=== PATIENT | female | born 1985 | race Caucasian/White ===

== ENCOUNTER 2023-06-30 12:04 | Emergency (ER) | payer OTHER, SELFPAY ==
[2023-06-30 12:14] VITALS: BP 128/85; PULSE 86; RESP 16; TEMP 36.3; O2SAT 100
[2023-06-30 12:15] VITALS: BP 128/85; PULSE 86; RESP 16; TEMP 36.3; O2SAT 100
--- NOTE | 2023-06-30 12:29 | ED.FEMALEGU ---
HPI - Female Genitourinary General Chief complaint: Urogenital-Female Stated complaint: uti Time Seen by Provider: 06/30/23 12:23 Source: patient and RN notes reviewed Mode of arrival: ambulatory Limitations: no limitations History of Present Illness HPI Narrative: Patient presents today complaining of vulvar itching and external burning with urination that started 3 days ago. Denies abdominal pain, back pain, fever, nausea vomiting, sweats or chills. Patient started her menstrual cycle 4 days ago. She has been taking Azo Yeast without relief of symptoms. Related Data Home Medications Medication Instructions Recorded Confirmed buspirone 10 mg tablet 10 mg PO BID 06/30/23 06/30/23 dupilumab 300 mg/2 mL subcutaneous See Rx Instructions .Route .COMPLEX 06/30/23 06/30/23 pen injector (Dupixent) Allergies Allergy/AdvReac Type Severity Reaction Status Date / Time No Known Allergies Allergy Verified 06/30/23 12:14 Review of Systems Review of Systems: CONSTITUTIONAL: Denies body aches, fever, chills, or sweats. EYES: Denies visual changes, redness, or discharge. ENT: Denies rhinorrhea, congestion, sore throat, or otalgia. CARDIOVASCULAR: Denies chest pain, palpitations, or edema. RESPIRATORY: Denies cough or dyspnea. GASTROINTESTINAL: Denies abdominal pain, nausea, vomiting, or diarrhea. GENITOURINARY: + vulvar itching and burning SKIN: Denies rash, itching, or wounds. MUSCULOSKELETAL: Denies back pain, joint pain, or myalgia. NEUROLOGIC: Denies headache, numbness, tingling, or weakness. PSYCH: Denies depression or anxiety. PMFSH Comments At time of signature, I have reviewed and agree with nursing past medical, surgical, social and family history unless otherwise noted. Please see nursing chart for further information. There is no relevant family history pertinent to the presenting complaint Exam Narrative: GENERAL: Well-appearing, well-nourished, and in no acute distress. HEAD: Normocephalic, atraumatic. EYES: EOMI. No redness or drainage. Conjunctivae normal. ENT: Mucous membranes pink and moist. NECK: Normal AROM. CHEST: No respiratory distress. : exam deferred EXTREMITIES: Normal range of motion. No edema. SKIN: Warm, dry, no rash. Capillary refill normal. Normal skin turgor. NEURO: No focal deficits. Alert and oriented x3. Gait steady. PSYCH: Normal affect. No signs of depression or anxiety. Course Course Level of Care: Express Care Visit Vital Signs Vital signs: Vital Signs Temperature 97.4 F L 06/30/23 12:14 Pulse Rate 86 06/30/23 12:14 Respiratory Rate 16 06/30/23 12:14 Blood Pressure 128/85 06/30/23 12:14 Pulse Oximetry 100 06/30/23 12:14 Oxygen Delivery Room Air 06/30/23 12:14 Temperature 97.4 F L 06/30/23 12:15 Pulse Rate 86 06/30/23 12:15 Respiratory Rate 16 06/30/23 12:15 Blood Pressure 128/85 06/30/23 12:15 Pulse Oximetry 100 06/30/23 12:15 Oxygen Delivery Room Air 06/30/23 12:15 Reviewed MDM - Female Genitourinary MDM Narrative Medical decision making narrative: Urinalysis is not consistent with UTI. Patient's symptoms consistent with her with vulvovaginitis. Will treat with fluconazole. Recommend follow-up in 1 week if symptoms persist. Differential Diagnosis Differential diagnosis: Likely urinary tract infection, vaginitis, cystitis and other Lab Data Attestation: I reviewed the patient's lab results. Labs: Urine Glucose Negative Reference Range: Negative Urine Bilirubin Negative Reference Range: Negative Urine Ketone Negative Reference Range: Negative Urine Specific [place] 1.010 Reference Range:1.001-1.035 Urine Blood
== END 2023-06-30 12:37 | disposition home or self-care (01) ==
PROVIDERS: Emergency Provider Nurse Practitioner
DX: N76.0 Acute vaginitis (principal); F41.9 Anxiety disorder, unspecified; F32.A Depression, unspecified; Z87.440 Personal history of urinary (tract) infections; Z86.16 Personal history of COVID-19
CPT/HCPCS: 81003; 87077; 87086; 87088; 99203; G0463

== ENCOUNTER 2023-10-04 17:34 | Emergency (ER) | payer OTHER, SELFPAY ==
[2023-10-04 17:35] VITALS: BP 141/98; PULSE 117; RESP 18; TEMP 36.1; O2SAT 97
--- NOTE | 2023-10-04 17:43 | ED.URI ---
HPI - URI/Sore Throat General Chief Complaint: Upper Respiratory Infection Stated Complaint: cold symptoms Time Seen by Provider: 10/04/23 17:41 History of Present Illness HPI Narrative: Pt presents with sore throat chills and body aches and fever for several days. Pt went to an urgent care and had negative strep, covid, flu and rsv. Pt given Rx for amoxil and has taken one dose. Pt now feels nauseated and has had some diarrhea. Pt is concerned because she is not getting better. Related Data Home Medications Medication Instructions Recorded Confirmed buspirone 10 mg tablet 10 mg PO BID 06/30/23 10/04/23 dupilumab 300 mg/2 mL subcutaneous See Rx Instructions .Route .COMPLEX 06/30/23 10/04/23 pen injector ([employer]) Allergies Allergy/AdvReac Type Severity Reaction Status Date / Time No Known Allergies Allergy Verified 10/04/23 18:18 Review of Systems Review of Systems: All systems reviewed & are unremarkable except as noted in HPI and below Exam Const: General: healthy appearing and no acute distress Nutritional Appearance: well nourished Orientation/consciousness: patient oriented x3 Limitations: no limitations HENMT: Face/Nose/Sinus: Normal external nose present Mouth: Yes Normal oral and palatal mucosa present Other: erythema post pharynx no exudate Neck: Neck: normal visual inspection and lymphadenopathy Resp: Effort & Inspection: normal respiratory effort Auscultation: clear to auscultation bilaterally Cardio: Rate: regular rate Rhythm: regular rhythm GI: GI Palp: Yes Soft to palpation and No Tenderness to palpation present (GI) Auscultation: normal bowel sounds Skin: General skin exam: normal color Rashes: no rashes Wounds: no wounds Neuro: General: patient oriented x3, moves all extremities, no meningeal signs and no focal motor deficits Speech: normal speech Extrem: General: normal to inspection and no clubbing, cyanosis or edema Psych: Mental Status: mental status grossly normal Affect: normal affect Attitude: cooperative Course Vital Signs Vital signs: Vital Signs Temperature 97.0 F L 10/04/23 17:35 Pulse Rate 117 H 10/04/23 17:35 Respiratory Rate 18 10/04/23 17:35 Blood Pressure 141/98 H 10/04/23 17:35 Pulse Oximetry 97 10/04/23 17:35 Oxygen Delivery Room Air 10/04/23 17:35 Temperature 97.0 F L 10/04/23 17:44 Pulse Rate 108 H 10/04/23 19:10 Respiratory Rate 16 10/04/23 19:10 Blood Pressure 119/75 10/04/23 19:10 Pulse Oximetry 98 10/04/23 19:10 Oxygen Delivery Room Air 10/04/23 19:10 MDM - URI/Sore Throat MDM Narrative Medical decision making narrative: Pt presents with feverm St and chills and myalgias. has already testeed neg for flu, rsv, covid and strep and taken one dose of amoxil. Will check labs and give some toradol and zofran and liter of fluids Lab Data 10/04/23 17:56 10/04/23 17:56 Labs: Lab Results 10/04/23 Range/Units 17:56 WBC 11.0 H (4.8-10.8) K/mm3 RBC 4.72 (4.20-5.40) M/mm3 Hgb 13.8 (12.0-15.0) g/dL Hct 39.6 (35.0-49.0) % MCV 83.9 (78.0-102.0) fL MCH 29.2 (27.0-31.0) pg MCHC 34.8 (32-36) g/dL RDW 12.6 (11.6-14.4) % Plt Count 376 (150-420) K/mm3 MPV 8.3 L (9.2-11.8) fl Immature Gran % (Auto) 0.5 H (0.0-0.0) % Neut % (Auto) 73.3 H (50.0-70.0) % Lymph % (Auto) 15.8 L (18.0-42.0) % Mayes % (Auto) 9.7 (2.0-11.0) % Eos % (Auto) 0.3 L (1.0-6.0) % Baso % (Auto) 0.4 (0.0-1.0) % Lymph # (Auto) 1.74 (1.10-4.50) K/mm3 Mayes # (Auto) 1.07 H (0.10-0.90) K/mm3 Eos # (Auto) 0.03 (0.02-0.50) K/mm3 Baso # (Auto) 0.04 (0.00-0.10) K/mm3 Abs Immat Gran (auto) 0.05 H (0.00-0.00) K/mm3 Absolute Neuts (auto) 8.11 H (1.70-7.20) K/mm3 Absolute Nucleated RBC 0.00 (0.00-0.00) K/mm3 Nucleated RBC % 0.0 (0-0.0) % Sodium 139 (136-145) mmol/L Potassium 3.3 L (3.5-5.1) mmol/L Chloride 100 (98-108) mmol/L Carbon
[2023-10-04 17:44] VITALS: BP 141/98; PULSE 117; RESP 16; TEMP 36.1; O2SAT 97
[2023-10-04 18:00] LABS: Basophils Absolute Auto 0.04 K/mm3 (0.00-0.10); Basophils Percent Auto 0.4 % (0.0-1.0); Eosinophils Absolute Auto 0.03 K/mm3 (0.02-0.50); Eosinophils Percent Auto 0.3 % (1.0-6.0); Hematocrit 39.6 % (35.0-49.0); Hemoglobin 13.8 g/dL (12.0-15.0); Immature Granulocyte Absolute 0.05 K/mm3 (0.00-0.00); Immature Granulocyte Percent A 0.5 % (0.0-0.0); Lymphocytes Absolute Auto 1.74 K/mm3 (1.10-4.50); Lymphocytes Percent Auto 15.8 % (18.0-42.0); Mean Corpuscular HGB Conc 34.8 g/dL (32-36); Mean Corpuscular Hemoglobin 29.2 pg (27.0-31.0); Mean Corpuscular Volume 83.9 fL (78.0-102.0); Mean Platelet Volume 8.3 fl (9.2-11.8); Monocytes Absolute Auto 1.07 K/mm3 (0.10-0.90); Monocytes Percent Auto 9.7 % (2.0-11.0); Neutrophils Absolute Auto 8.11 K/mm3 (1.70-7.20); Neutrophils Percent Auto 73.3 % (50.0-70.0); Platelet Count Result 376 K/mm3 (150-420); Red Blood Count 4.72 M/mm3 (4.20-5.40); Red Cell Distribution Width 12.6 % (11.6-14.4)
[2023-10-04] MEDS: SODIUM CHLORIDE 0.9% IV 1,000 ML 999 ML IV CONT (18:08)
[2023-10-04] MEDS: KETOROLAC 15 MG/ML VIAL (*BKC) IV PUSH (18:10)
[2023-10-04] MEDS: ONDANSETRON INJ 4 MG/2 ML VIAL IV PUSH (18:10)
[2023-10-04 18:15] LABS: Alanine Aminotransferase 78 U/L (14-59); Albumin Level 3.6 g/dL (3.4-5.0); Alkaline Phosphatase 179 U/L (46-116); Anion Gap 12 mmol/L (4-12); Aspartate Amino Transferase 38 U/L (15-37); Bilirubin,Total 0.5 mg/dL (0.00-1.00); Blood Urea Nitrogen 5 mg/dL (7-18); Calcium 9.4 mg/dL (8.5-10.1); Carbon Dioxide 27 mmol/L (21-32); Chloride 100 mmol/L (98-108); Estimated CRCL calculation 75 ml/min; Estimated Glomerular Filt Rate 57; Glucose 110 mg/dL (70-99); Osmolality Calculated 286 mOsm/kg (285-295); Potassium 3.3 mmol/L (3.5-5.1); Sodium 139 mmol/L (136-145); Total Protein 8.3 g/dL (6.4-8.2)
[2023-10-04 19:10] VITALS: BP 119/75; PULSE 108; RESP 16; O2SAT 98
--- NOTE | 2023-10-11 12:43 | PC.NURSE ---
final blood culture reports x5 reviewed. no growth after 5 days. no change in plan of care
== END 2023-10-04 19:10 | disposition home or self-care (01) ==
PROVIDERS: Emergency Provider Emergency Medicine
DX: J06.9 Acute upper respiratory infection, unspecified (principal); Z79.899 Other long term (current) drug therapy
CPT/HCPCS: 36415; 80053; 85025; 87040; 99283; J1885; J2405; J7030

== ENCOUNTER 2025-02-13 08:58 | Emergency (ER) | payer OTHER, SELFPAY ==
[2025-02-13 09:13] VITALS: BP 117/86; PULSE 95; RESP 16; TEMP 36.6; O2SAT 100
[2025-02-13 09:27] LABS: EDCOVIDSCREEN Negative (Negative); EDINFLUASCREEN Negative (Negative); EDINFLUBSCREEN Negative (Negative)
--- NOTE | 2025-02-13 10:05 | ED.URI ---
HPI - URI/Sore Throat General Chief Complaint: Upper Respiratory Infection Stated Complaint: URI Symptoms Time Seen by Provider: 02/13/25 09:35 Source: patient and RN notes reviewed Mode of arrival: ambulatory Limitations: no limitations History of Present Illness HPI Narrative: 39-year-old female presents Express Care complaining of upper respiratory symptoms for 4-5 days. The patient complains a congestion, post nasal drainage, and a dry nonproductive cough. Patient reports the cough is worse at night. Patient denies any fevers, body aches, chills, any other upper respiratory symptoms, breathing problems, chest pains, any other symptoms. Patient taking NyQuil to help with symptoms. Related Data Home Medications ?Medication ?Instructions ?Recorded ?Confirmed ?Last Taken ?Type dupilumab 300 mg/2 mL subcutaneous See Rx Instructions .Route .COMPLEX 06/30/23 09/15/24 Unknown History pen injector (Dupixent) norgestimate 0.25 mg-ethinyl tablet 02/13/25 Unknown History estradiol 0.035 mg tablet (Dora) Allergies Allergy/AdvReac Type Severity Reaction Status Date / Time No Known Allergies Allergy Verified 02/13/25 09:14 Review of Systems Review of Systems: CONSTITUTIONAL: Denies fever, chills, or sweats. EYES: Denies visual changes, redness, or discharge. ENT: Denies rhinorrhea, sore throat, or otalgia. Positive for congestion postnasal drainage. CARDIOVASCULAR: Denies chest pain, palpitations, or edema. RESPIRATORY: Positive for cough. Negative for dyspnea. GASTROINTESTINAL: Denies abdominal pain, nausea, vomiting, or diarrhea. GENITOURINARY: Denies dysuria or hematuria. SKIN: Denies rash or itching. MUSCULOSKELETAL: Denies back pain, joint pain, or myalgia. NEUROLOGIC: Denies headache, numbness, or weakness. PSYCHIATRIC: Denies anxiety or depression. All other systems reviewed are negative, except as documented in HPI. [facility] Past Medical History Medical History Anxiety Depression Family History Family History Father Hypertension Diabetes mellitus Hyperlipidemia Grandparent Skin cancer Grandparent Heart disease Social History Social History Years smoked: 1 Smoking status: Never smoker Tobacco type: e-cigarettes/vaping Second hand tobacco smoke exposure: Yes Smoking end date: 09/11/23 Alcohol intake: current Drinks per week: 5 Alcohol use details: Social Substance use: never Comments At the time of my signature, I reviewed and agree with the nursing past medical, surgical, social, and family history. There is no relevant family history pertinent to the patient complaint. Exam Narrative: GENERAL: This is a well-nourished, well-developed adult, in no apparent distress. They are non ill-appearing, nontoxic appearing. HEAD: normocephalic, atraumatic. EYES: Sclera clear/white. Conjunctiva normal. Vision is grossly intact. Extraocular movements intact EARS: External ears normal, auditory canals clear and without drainage, TMs normal without perforation. Hearing grossly intact. NOSE: External nose normal with no obvious nasal discharge, nasal turbinates erythemic no swelling, no rhinorrhea. THROAT: Mucous membranes moist, posterior pharynx clear, without erythema or swelling. PND present. Uvula midline. NECK: Neck supple, non-tender without lymphadenopathy, masses or thyromegaly. CARDIOVASCULAR: Regular rate and rhythm without murmurs, gallops, or rubs. RESPIRATORY: Clear to auscultation. Breath sounds equal bilaterally. No wheezes, rales, or rhonchi. SKIN: warm, Dry, intact with no suspicious lesions or rash, good texture and turgor. NEURO: awake, alert, and oriented to person, place and time. There were no obvious focal neurologic abnormalities. EXTREMITIES: No joint tenderness, effusion, or edema noted. BACK: Nontender without deformity. No CVA tenderness. Course Course Level of Care: Express Care Visit Vital Signs Vital signs: Vital Signs Temperature 98 F 02/13/25 09:13 Pulse Rate 95 02/13/25 09:13 Respiratory Rate 16 02/13/25 09:13 Blood Pressure 117/86 02/13/25 09:13 Pulse Oximetry 100 02/13/25 09:13 Oxygen Delivery Room Air 02/13/25 09:13 Temperature 98 F 02/13/25 09:13 Pulse Rate 95 02/13/25 09:13 Respiratory Rate 16 02/13/25 09:13 Blood Pressure 117/86 02/13/25 09:13 Pulse Oximetry 100 02/13/25 09:13 Oxygen Delivery Room Air 02/13/25 09:13 [facility] Narrative Medical decision making narrative: Rapid COVID and flu were negative. Likely has a viral upper respiratory infection. Discussed supportive care. Discussed physical exam findings. Advised supportive measures and signs/symptoms to go to the ER. Pt is appropriate for outpt treatment and f/u. Differential Diagnosis Differential Diagnosis: Differential diagnostic considerations for upper respiratory infection include upper respiratory infection, croup, otitis media, sinusitis, viral infection, bronchitis, influenza, pharyngitis, strep, uvulitis. Lab Data [facility] Lab Attestation statement: I personally reviewed the patient's lab results. Labs: Lab Results 02/13/25 Range/Units 09:25 POC Influenza A Ag Negative (Negative) POC Influenza B Ag Negative (Negative) POC SARS CoV-2 Ag Negative (Negative) Critical Care Time Critical Care Time Critical Care Time: No Discharge Plan Discharge Clinical Impression: Upper respiratory infection Qualifiers: URI type: unspecified viral URI Qualified Code(s): J06.9 - Acute upper respiratory infection, unspecified Patient Disposition: Home Condition: Stable Instructions: Antibiotic Form, Upper Respiratory Infection (ED) Additional Instructions: Your rapid COVID and flu were negative today. Viral illness may last between 7-10 days; antibiotics do not cure viral illness and are NOT recommended at this time. Recommend antihistamine such Claritin or Zyrtec. You may try a tsp of warm honey at night for the cough. Also, recommend symptomatic treatment includes: rest, fluids, and increase humidity of the air at home. Tylenol ibuprofen as needed for pain or fevers. Please schedule a follow-up visit with your personal physician for further evaluation and treatment within 3-5days. He developed chest pain, breathing problems, vomiting, worsening symptoms, or any serious concerns please go to the ER immediately. Patient Language: Congolese Prescriptions: No Action Dupixent Pen 300 mg/2 mL pen injector See Rx Instructions .ROUTE .COMPLEX Rx Instructions: 300 mg subcutaneously twice a month norgestimate-ethinyl estradiol [Dora] 0.25-0.035 mg tablet buspirone 15 mg tablet 15 mg PO BID Qty: 180 3RF Follow-up/Referrals: UNKNOWN,DOCTOR [Primary Care Provider] Stand Alone Forms: Work/School Release IP Time of Disposition: 09:42
== END 2025-02-13 09:45 | disposition home or self-care (01) ==
DX: J06.9 Acute upper respiratory infection, unspecified (principal); Z20.822 Contact with and (suspected) exposure to COVID-19; F41.9 Anxiety disorder, unspecified; F32.A Depression, unspecified; Z87.891 Personal history of nicotine dependence
CPT/HCPCS: 87426; 87804; 99212; G0463